=== PATIENT | female | born 2000 | race American Indian/Alaskan Native ===

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

== ENCOUNTER 2018-08-23 20:24 | Emergency (ER) | payer MEDICAID ==
--- NOTE | 2018-08-23 20:51 | Emergency Department Report ---
Blank Doc - Documentation Documentation: This is a 18-year-old female that presents with pelvic cramping and vaginal cl ear discharge. Patient stated is about 18 weeks . This initial assessment/diagnostic orders/clinical plan/treatment(s) is/are subject to change based on patient's health status, clinical progression and re- assessment by fellow clinical providers in the ED. Further treatment and workup at subsequent clinical providers discretion. Patient/guardians urged not to elope from the ED as their condition may be serious if not clinically assessed and managed. Initial orders include: 1- Patient sent to MAIN ED for further evaluation and treatment 2- labs 3- UA
--- NOTE | 2018-08-23 21:13 | Emergency Department Report ---
HPI - General Chief Complaint: Urogenital-Female Time Seen by Provider: 08/23/18 20:49 - HPI HPI: Room 7 The patient is a 18-year-old female presenting with a chief complaint of abdominal contractions. The patient states she is 18 weeks gestational age9 she noticed a clear liquid running down her leg emanating from her vagina. Patient states the liquid appeared like a mucous. Patient contacted her DIRECTOR PRODUCT MANAGEMENT from [place] was struck to her that she probably lost her mucous plug. The patient states last night she had intermittent abdominal contractions. The patient states this morning at 02:00 which awaken her abdomen felt "numb." At 07:00 the patient states she no longer felt movement. Approximate one hour prior to coming to the ED she began having abdominal contractions every 4-5 minutes. Patient denies vaginal bleeding Location: Abdomen Duration: [See above] Quality: [See above] Severity: [See above] Modifying factors: [see above] Context: [see above] Mode of transportation: [not driving] ED Past Medical Hx - Past Medical History Previous Medical History?: Yes Hx Psychiatric Treatment: Yes (Bipolar, anxiety, depression) Hx Asthma: Yes Additional medical history: Tonsillitis - Surgical History Past Surgical History?: No - Family History Family history: no significant - Social History Smoking Status: Never Smoker Substance Use Type: None - Medications Home Medications: Home Medications Medication Instructions Recorded Confirmed Last Taken Type Etonogestrel [Nexplanon] 68 mg SQ [id number] 09/20/16 09/20/16 Unknown History Ibuprofen [Motrin 800 MG tab] 800 mg PO Q8HR PRN #20 tablet 09/20/16 Unknown Rx metroNIDAZOLE [Flagyl] 500 mg PO Q12HR #14 tab 09/20/16 Unknown Rx Nitrofurantoin [place]/M-Cryst 100 mg PO Q12HR #20 capsule 08/24/18 Unknown Rx [Macrobid CAP] ED Review of Systems ROS: Stated complaint: ABD PAIN/18 WKS PREG Other details as noted in HPI Constitutional: no symptoms reported Eyes: denies: eye pain ENT: denies: throat pain Respiratory: no symptoms reported Cardiovascular: denies: chest pain Endocrine: no symptoms reported Gastrointestinal: abdominal pain Genitourinary: denies: abnormal menses Musculoskeletal: denies: back pain Neurological: denies: headache Physical Exam - Physical Exam Vital Signs: Vital Signs 08/23/18 20:50 Temperature 98.5 F Pulse Rate 114 H Respiratory 20 Rate Blood Pressure 134/74 [Left] O2 Sat by Pulse 99 Oximetry Physical Exam: GENERAL: The patient is well-developed well-nourished female lying on stretcher not appearing to be in acute distress. [] HEENT: Normocephalic. Atraumatic. Extraocular motions are intact. Patient has moist mucous membranes. NECK: Supple. Trachea midline CHEST/LUNGS: Clear to auscultation. There is no respiratory distress noted. HEART/CARDIOVASCULAR: Regular. There is no tachycardia. There is no gallop rub or murmur. ABDOMEN: Abdomen is soft, and gravid. Mild suprapubic discomfort to palpation. No rebound or guarding. Patient has normal bowel sounds. SKIN: There is no rash. There is no edema. There is no diaphoresis. NEURO: The patient is awake, alert, and oriented. The patient is cooperative. The patient has normal speech MUSCULOSKELETAL: There is no evidence of acute injury. ED Course Vital Signs 08/23/18 20:50 Temperature 98.5 F Pulse Rate 114 H Respiratory 20 Rate Blood Pressure 134/74 [Left] O2 Sat by Pulse 99 Oximetry - Consultations Consultation #1: 08/24/18 01:12 [employer] paged 08/24/18 01:[address] Julien-recommends bed rest, drink plenty of fluids and follow-up with OB ED Medical Decision Making - Lab Data Result diagrams: 08/23/18 21:35 08/23/18 21:11 Laboratory Tests 08/23/18 08/23/18 08/23/18 21:11 21:11 21:11 WBC RBC Hgb Hct MCV MCH MCHC RDW Plt Count Lymph % (Auto) [place] % (Auto) Eos % (Auto) Baso % (Auto) Lymph # [place] # Eos # Baso # Seg Neutrophils % Seg Neutrophils # Sodium 134 L Potassium 3.6 Chloride 100.0 Carbon Dioxide 20 L Anion Gap 18 BUN 7 Creatinine 0.5 L Estimated GFR > 60 BUN/Creatinine Ratio 14 Glucose 119 H Calcium 8.8 HCG, Quant 39050 H Urine Color Urine Turbidity Urine pH Ur Specific [place] Urine Protein Urine Glucose (UA) Urine Ketones Urine Blood Urine Nitrite Urine Bilirubin Urine Urobilinogen Ur Leukocyte Esterase Urine WBC (Auto) Urine RBC (Auto) U Epithel Cells (Auto) Urine Bacteria (Auto) Urine Mucus Urine Yeast (Budding) Blood Type AB POSITIVE 08/23/18 08/23/18 21:35 22:59 WBC 11.6 H RBC 4.14 Hgb 11.7 Hct 36.1 MCV 87 MCH 28 MCHC 32 RDW 13.8 Plt Count 233 Lymph % (Auto) 19.6 [place] % (Auto) 4.1 Eos % (Auto) 0.4 Baso % (Auto) 0.5 Lymph # 2.3 [place] # 0.5 Eos # 0.0 Baso # 0.1 Seg Neutrophils % 75.4 H Seg Neutrophils # 8.8 H Sodium Potassium Chloride Carbon Dioxide Anion Gap BUN Creatinine Estimated GFR BUN/Creatinine Ratio Glucose Calcium HCG, Quant Urine Color Yellow Urine Turbidity Cloudy Urine pH 6.0 Ur Specific [place] 1.028 Urine Protein 30 mg/dl Urine Glucose (UA) Neg Urine Ketones Tr Urine Blood Neg Urine Nitrite Neg Urine Bilirubin Neg Urine Urobilinogen 2.0 Ur Leukocyte Esterase Lg Urine WBC (Auto) 77.0 H Urine RBC (Auto) 21.0 U Epithel Cells (Auto) 43.0 H Urine Bacteria (Auto) 2+ Urine Mucus 3+ Urine Yeast (Budding) 1+ Blood Type - Radiology Data Radiology results: report reviewed (pelvic ultrasound), image reviewed (pelvic ultrasound) [facility] [address] [place] [address] Ultrasound Report Signed Patient: ELENA FOLEY MR#: [id number] : 2000 Acct:[id number] Age/Sex: 18 / F ADM Date: 08/23/18 Loc: ED Attending Dr: Ordering Physician: FANG GARCIA NP Date of Service: 08/23/18 Procedure(s): US OB >= 14 weeks Fetus Accession Number(s): [id number] cc: FANG GARCIA NP PROCEDURE: US OB >= 14 WEEKS FETUS TECHNIQUE: Real-time limited sonographic examination was performed for evaluation of well-being, placenta for each fetus with image documentation (1 or more fetuses). HISTORY: pelvic pain COMPARISONS: None . FINDINGS: MATERNAL Uterus: Within normal limits . Cervix length:, 3.6 cm. Internal Os: closed . FETUS IUP: Single living intrauterine . Position: Breech . Placental position: Posterior, without previa . Amniotic fluid volume: Normal Heart rate and rhythm: 154 BPM, Regular . anatomic survey: Not performed on this study . MEASUREMENTS BPD: 3.5 cm . HC: 13.5 cm . AC: 11.7 cm . FL: 2.7 cm . Mean Gestational Age (composite criteria): 17 weeks 3 days . Ratio biometry: Normal . Estimated Weight: 206 grams Interval growth: No priors . Estimated Due Date (earliest scan): 01/28/2019 . IMPRESSION: 1. Single living intrauterine gestation at approximately 17 weeks 3 days . 2. EDC by US 01/28/2019 . This document is electronically signed by Dotty Rivera DO., August 24 2018 01:00:40 AM ET Transcribed By: [facility] Dictated By: DOTTY RIVERA MD Electronically Authenticated By: DOTTY RIVERA MD Signed Date/Time: 08/24/18101 DD/ TD/TT: 08/24/1847 - Differential Diagnosis threatened , demise, UTI, Garrison Mulligan Critical care attestation.: If time is entered above; I have spent that time in minutes in the direct care of this critically ill patient, excluding procedure time. ED Disposition Clinical Impression: Threatened , UTI (urinary tract infection) Disposition: - TO HOME OR SELFCARE Is pt being admited?: No Does the pt Need Aspirin: No Condition: Stable Instructions: Urinary Tract Infection in Women (ED) Additional Instructions: Drink plenty of fluids and stay on bed rest until cleared by [employer]OR [employer]. Return to the emergency department immediately should you develop worsening symptoms, fever, inability to tolerate food or liquid or any other concerns. Prescriptions: Nitrofurantoin [place]/M-Cryst [Macrobid CAP] 100 mg PO Q12HR #20 capsule Referrals: JESUS HANNA MD [Primary Care Provider] - 3-5 Days ENRIQUE JULIEN MD [Staff Physician] - 3-5 Days (Dr. Julien is an DIRECTOR [employer]GEMENT. Hillary palacios follow up with him for further evaluation) Time of Disposition: :
[2018-08-23 21:43] LABS: BUN/Creatinine Ratio 14; Blood Urea Nitrogen 7 mg/dL (7-17); Calcium 8.8 mg/dL (8.4-10.2); Hemolysis Index 9
[2018-08-23 22:00] LABS: Basophils # (Auto) 0.1 K/mm3 (0.0-0.1); Basophils % (Auto) 0.5 % (0.0-1.8); Eosinophils % (Auto) 0.4 % (0.0-4.3); Hematocrit 36.1 % (30.3-42.9); Hemoglobin 11.7 gm/dl (10.1-14.3); Lymphocytes # (Auto) 2.3 K/mm3 (1.2-5.4); Lymphocytes % (Auto) 19.6 % (13.4-35.0); Mean Corpuscular HGB Conc 32 % (30-34); Mean Corpuscular Volume 87 fl (79-97); Monocytes # (Auto) 0.5 K/mm3 (0.0-0.8); Monocytes % (Auto) 4.1 % (0.0-7.3); Platelet Count 233 K/mm3 (140-440); Red Blood Count 4.14 M/mm3 (3.65-5.03); Red Cell Distribution Width 13.8 % (13.2-15.2)
[2018-08-24 00:01] LABS: Bacteria,Urine 2+ /HPF (Negative); Bilirubin,Urine NEG (Negative); Blood,Urine NEG (Negative); Color,Urine Yellow (Yellow); Mucus,Urine 3+ /HPF
--- NOTE | 2018-08-24 01:02 | Ultrasound Report ---
PROCEDURE: US OB >= 14 WEEKS FETUS TECHNIQUE: Real-time limited sonographic examination was performed for evaluation of well-bein g, placenta for each fetus with image documentation (1 or more fetuses). HISTORY: pelvic pain COMPARISONS: None . FINDINGS: MATERNAL Uterus: Within normal limits . Cervix length:, 3.6 cm. Internal Os: closed . FETUS IUP: Single living intrauterine . Position: Breech . Placental position: Posterior, without previa . Amniotic fluid volume: Normal Heart rate and rhythm: 154 BPM, Regular . anatomic survey: Not performed on this study . MEASUREMENTS BPD: 3.5 cm . HC: 13.5 cm . AC: 11.7 cm . FL: 2.7 cm . Mean Gestational Age (composite criteria): 17 weeks 3 days . Ratio biometry: Normal . Estimated Weight: 206 grams Interval growth: No priors . Estimated Due Date (earliest scan): 01/28/2019 . IMPRESSION: 1. Single living intrauterine gestation at approximately 17 weeks 3 days . 2. EDC by US 01/28/2019 . This document is electronically signed by Dotty Rivera DO., August 24 2018 01:00:40 AM ET
[2018-08-24 01:35] VITALS: BP 132/81
== END 2018-08-24 01:35 | disposition home or self-care (01) ==
LOC: ED 20:24
DX: O20.0 Threatened abortion (principal); O23.42 Unspecified infection of urinary tract in pregnancy, second trimester; O99.342 Other mental disorders complicating pregnancy, second trimester; F31.9 Bipolar disorder, unspecified; F41.9 Anxiety disorder, unspecified; O99.512 Diseases of the respiratory system complicating pregnancy, second trimester; J45.909 Unspecified asthma, uncomplicated; Z91.018 Allergy to other foods; Z3A.17 17 weeks gestation of pregnancy
CPT/HCPCS: 36415; 76805; 80048; 81001; 84702; 85025; 86900; 86901; 87086

== ENCOUNTER 2018-11-14 13:27 | Outpatient (CLI) | payer MEDICAID ==
[2018-11-14 14:26] VITALS: BP 123/75
[2018-11-14 17:47] LABS: Bacteria,Urine 4+ /HPF (Negative); Bilirubin,Urine NEG (Negative); Blood,Urine NEG (Negative); Color,Urine Amber (Yellow); Mucus,Urine 3+ /HPF
== END 2018-11-14 18:33 | disposition home or self-care (01) ==
LOC: TRG 13:27
PROVIDERS: ATTEND Obstetrics & Gynecology
DX: O47.03 False labor before 37 completed weeks of gestation, third trimester (principal); O26.893 Other specified pregnancy related conditions, third trimester; R10.30 Lower abdominal pain, unspecified; M54.9 Dorsalgia, unspecified; Z3A.29 29 weeks gestation of pregnancy
CPT/HCPCS: 59025; 81001